=== PATIENT | female | born 1985 | race African-American/Black ===

== ENCOUNTER 2016-12-09 19:03 | Emergency (ER) | payer BC ==
--- NOTE | 2016-12-09 19:17 | PDOC ---
Rapid Medical Evaluation Time Seen by Provider: 12/09/16 19:11 Medical Evaluation: I have performed a brief in-person evaluation of this patient. The patient presents with a chief complaint of: mastitis of right breast; on keflex and bactrim; yesterday the abscess popped and the patient went to urgent care who sent her here because they thought she needed a breast ultrasound Pertinent physical exam findings: tachycardic I have ordered the following: hcg, breast ultrasound The patient will proceed to the ED for further evaluation.
[2016-12-09 19:19] VITALS: BP 139/75; PULSE 102; TEMP 98.2; BMI 29.4
--- NOTE | 2016-12-09 20:32 | PDOC ---
History of Present Illness - General Chief Complaint: Pain Stated Complaint: PCP SENT/EVALUATION Time Seen by Provider: 12/09/16 19:11 History Source: Patient Exam Limitations: No Limitations - History of Present Illness Initial Comments: CHIEF COMPLAINT: 31 y/o afebrile female with no significant PMH sent in from Urgent Care with right mastitis. HISTORY OF PRESENT ILLNESS: The patient states she was seen in last week and diagnosed with mastitis. She was started on keflex and bactrim and states today the abscess opened and started draining. She went back to , and they sent her here for an ultrasound. She denies f/c, n/v/d, worsening of pain, discharge from nipple. She states she feels better and her breast looks better than it did before she started treatment. Vital signs on arrival are notable for pulse of 102. REVIEW OF SYSTEMS: GENERAL/CONSTITUTIONAL: No fever/chills. No weakness. No weight change. HEAD, EYES, EARS, NOSE AND THROAT: No change in vision. No ear pain or discharge. No sore throat. CARDIOVASCULAR: No chest pain or shortness of breath. RESPIRATORY: No cough, wheezing, or hemoptysis. GASTROINTESTINAL: No abd pain, nausea, vomiting, diarrhea. GENITOURINARY: No dysuria, frequency, or change in urination. MUSCULOSKELETAL: No joint or muscle swelling or pain. No neck or back pain. SKIN: Open abscess of right breast NEUROLOGIC: No headache, vertigo, loss of consciousness, or loss of sensation. PHYSICAL EXAM: GENERAL: The patient is awake, alert, and fully oriented, in no acute distress. HEAD: Normal with no signs of trauma. BREAST: 5cm in diameter open abscess of right medial breast without active drainage. There is some surrounding erythema without warmth or streaking. NEUROLOGICAL: Normal speech, normal gait. CN II-XII grossly intact. PSYCH: Normal mood, normal affect. SKIN: Warm, dry, normal turgor, no rashes or lesions noted. Past History - Past Medical History Allergies/Adverse Reactions: Allergies Allergy/AdvReac Type Severity Reaction Status Date / Time No Known Allergies Allergy Verified 12/09/16 19:15 Other medical history: Pt denies - Psycho/Social/Smoking Cessation Hx Suicidal Ideation: No Smoking History: Never smoked Information on smoking cessation initiated: No Hx Alcohol Use: No Drug/Substance Use Hx: No Substance Use Type: None *Physical Exam - Vital Signs Last Vital Signs Temp Pulse Resp BP Pulse Ox 98.2 F 102 H 19 139/75 100 12/09/16 19:17 12/09/16 19:17 12/09/16 19:17 12/09/16 19:17 12/09/16 19:17 ED Treatment Course - ADDITIONAL ORDERS Additional order review: Laboratory Results 12/09/16 19:20 Urine HCG, Qual Negative - RADIOLOGY Radiology Studies Ordered: Category Date Time Status BREAST US RIGHT COMPLETE [US] Routine Ultrasound 12/09/16 19:16 Taken Medical Decision Making - Medical Decision Making a/p: 31 y/o afebrile female with right breast abscess, already on abx, now draining. Sent in by for ultrasound. Plan is as follows: 1. hcg 2. ultrasound right breast 3. Wound culture hcg - negative Ultrasound right breast IMPRESSION (preliminary read from radiologist): No fluid collection; skin thickening Gave the patient the results. Instructed her to continue taking antibiotics as prescribed and follow up with her doctor this week. The patient was instructed to return to the ER with any worsening or concerning symptoms. The patient verbalizes understanding of all instructions, has no further questions and is awaiting discharge. *DC/Admit/Observation/Transfer Diagnosis at time of Disposition: Abscess of breast - Discharge Dispostion Disposition: HOME Condition at time of disposition: Good - Referrals Referrals: Elizabeth Lagos MD [Primary Care Provider] - Call tomorrow - Patient Instructions Printed Discharge Instructions: DI for Skin Abscess Additional Instructions: Discharge Instructions: -Continue taking the antibiotics as prescribed and complete entire course -Keep wound clean and dry -Call your doctor tomorrow to schedule follow up appointment -Return to the ER with any worsening or concerning symptoms
== END 2016-12-09 21:13 | disposition home or self-care (01) ==
LOC: JERFT 19:03
DX: N61.1 Abscess of the breast and nipple (principal)
CPT/HCPCS: 76641-TC-RT; 84703; 87070; 87205; 99281-25